=== PATIENT | female | born 1960 | race Caucasian/White ===

== ENCOUNTER 2020-05-07 13:12 | Outpatient (CLI) | payer OTHER, SELFPAY ==
--- NOTE | ~2020-05-07 | XR_ITS ---
EXAMINATION: XR lg joint inject/asp w image DATE: 05/07/2020 14:06 INDICATION: Right hip osteoarthritis with pain TECHNIQUE: A time-out was performed to verify the patient's name, date of , and procedure to b e performed. The procedure including the risks, benefits, and alternatives was discussed with the pat ient. Risks discussed included bleeding and infection. The patient understood the risks and agreed to proceed. The skin overlying the right hip joint was prepped and draped in usual sterile fashion. A nesthetic was administered with 1% lidocaine subcutaneously. A 5 inch 22 G needle was advanced under fluoroscopic guidance into the joint. Injection of 0.6 mL of Omnipaque 240 confirmed intra-articula r position of the needle. Subsequently, injectate consisting of 3 mL of a 2:1 mixture of 0.5% bupiva jeffery: 80 mg/mL Depo-Medrol for a total dose of 80 mg Depo-Medrol was instilled. Washout of contrast was seen confirming intra-articular administration. The needle was removed and the entry site was luis aned and dressed. There were no immediate complications. Fluoroscopy exposure time was 0.2 minutes. The total number of images was 1. FINDINGS: Real-time fluoroscopy demonstrates the needle in the right hip joint. Patient's pain prior to procedure:310. Patient's pain following the procedure: 310. IMPRESSION: 1. Access the right hip joint injection of local anesthetic and steroid with no change in the patient 's presenting pain. Reviewed, dictated and finalized at location A. IMPRESSION: 1. Access the right hip joint injection of local anesthetic and steroid with no change in the patient's presenting pain.
== END 2020-05-07 13:13 | disposition home or self-care (01) ==
LOC: ANHIMG 13:15
PROVIDERS: PCP Family Medicine; Visit Provider Orthopaedic Surgery
DX: M16.11 Unilateral primary osteoarthritis, right hip (principal)
CPT/HCPCS: 20610; 77002; J1040; Q9966

== ENCOUNTER 2020-08-16 10:16 | Outpatient (CLI) | payer OTHER, SELFPAY ==
--- NOTE | ~2020-08-16 | XR_ITS ---
EXAMINATION: XR lg joint inject/asp w image DATE: 08/16/2020 11:14 INDICATION: Right hip arthritis. TECHNIQUE: A time-out was performed to verify the patient's name, date of , and procedure to b e performed. The procedure including the risks, benefits, and alternatives was discussed with the pat ient. Risks discussed included bleeding and infection. The patient understood the risks and agreed to proceed. The skin overlying the right hip joint was prepped and draped in usual sterile fashion. A nesthetic was administered with 1% lidocaine subcutaneously. A 22 G needle was advanced under fluoro scopic guidance into the joint. Injection of 1 mL of Omnipaque 240 confirmed intra-articular positio n of the needle. Subsequently, injectate consisting of 2 mL 0.5% bupivacaine and 1 mL 80 mg/mL Depo- Medrol was instilled. The needle was removed and the entry site was cleaned and dressed. There were no immediate complications. Fluoroscopy exposure time was 0.1 minutes. The total number of images wa s 2. FINDINGS: Real-time fluoroscopy demonstrates the needle in the right hip joint. Patient's pain prior to procedure:6/10. Patient's pain following the procedure: 09/22. IMPRESSION: 1. Fluoroscopy guided right hip joint injection of local anesthetic and steroid with decrease in the patient's presenting pain. Reviewed, dictated and finalized at location A. NMAN
== END 2020-08-16 10:17 | disposition home or self-care (01) ==
LOC: ANHIMG 10:19
PROVIDERS: PCP Family Medicine; Visit Provider Orthopaedic Surgery
DX: M16.11 Unilateral primary osteoarthritis, right hip (principal)
CPT/HCPCS: 20610; 77002; J1040; Q9966

== ENCOUNTER 2020-12-06 14:15 | Outpatient (CLI) | payer OTHER, SELFPAY ==
--- NOTE | ~2020-12-06 | XR_ITS ---
EXAMINATION: XR lg joint inject/asp w image DATE: 12/06/2020 15:06 INDICATION: Right hip osteoarthritis. TECHNIQUE: A time-out was performed to verify the patient's name, date of , and procedure to b e performed. The procedure including the risks, benefits, and alternatives was discussed with the pat ient. Risks discussed included bleeding and infection. The patient understood the risks and agreed to proceed. The skin overlying the right hip joint was prepped and draped in usual sterile fashion. A nesthetic was administered with 1% lidocaine subcutaneously. A 5 inch, 22 G needle was advanced unde r fluoroscopic guidance into the joint. Injection of 1 mL of Omnipaque 240 confirmed intra-articular position of the needle. Subsequently, injectate consisting of 3 mm of a 2:1 mixture of 0.5% Marcain e: 80 mg/mL Depo-Medrol for a total dose of 80 mg Depo-Medrol was instilled. Washout of contrast was seen confirming intra-articular administration. The needle was removed and the entry site was cleaned and dressed. There were no immediate complications. Fluoroscopy exposure time was 0.1 minutes. The total number of images was 1. FINDINGS: Real-time fluoroscopy demonstrates the needle in the right hip joint. Patient's pain prior to procedure:6/10. Patient's pain following the procedure: 2/10. IMPRESSION: 1. Successful right hip joint injection of local anesthetic and steroid with decrease in the patient' s presenting pain. Reviewed, dictated and finalized at location A. IMPRESSION: 1. Successful right hip joint injection of local anesthetic and steroid with de crease in the patient's presenting pain.
== END 2020-12-06 14:16 | disposition home or self-care (01) ==
LOC: ANHIMG 14:23
PROVIDERS: PCP Family Medicine; Visit Provider Nurse Practitioner Family
DX: M16.11 Unilateral primary osteoarthritis, right hip (principal)
CPT/HCPCS: 20610; 77002; J1040; Q9966

== ENCOUNTER 2021-03-07 11:14 | Outpatient (CLI) | payer OTHER, SELFPAY ==
--- NOTE | ~2021-03-07 | XR_ITS ---
EXAMINATION: XR lg joint inject/asp w image DATE: 03/07/2021 12:10 INDICATION: Right hip arthritis. TECHNIQUE: A time-out was performed to verify the patient's name, date of , and procedure to b e performed. The procedure including the risks, benefits, and alternatives was discussed with the pat ient. Risks discussed included bleeding and infection. The patient understood the risks and agreed to proceed. The skin overlying the right hip joint was prepped and draped in usual sterile fashion. A nesthetic was administered with 1% lidocaine subcutaneously. A 22 G needle was advanced under fluoro scopic guidance into the joint. Injection of 1 mL of Omnipaque 240 confirmed intra-articular positio n of the needle. Subsequently, injectate consisting of 2 mL 0.5% bupivacaine and 1 mL 80 mg/mL Depo- Medrol was instilled. The needle was removed and the entry site was cleaned and dressed. There were no immediate complications. Fluoroscopy exposure time was 0.0 minutes. The total number of images wa s 2. FINDINGS: Real-time fluoroscopy demonstrates the needle in the right hip joint. Patient's pain prior to procedure:1/10. Patient's pain following the procedure: 0/10. IMPRESSION: 1. Fluoroscopy guided right hip joint injection of local anesthetic and steroid with decrease in the patient's presenting pain. Reviewed, dictated and finalized at location A.
== END 2021-03-07 11:15 | disposition home or self-care (01) ==
PROVIDERS: PCP Family Medicine; Visit Provider Nurse Practitioner Family
DX: M16.11 Unilateral primary osteoarthritis, right hip (principal)
CPT/HCPCS: 20610; 77002; J1040; Q9966

== ENCOUNTER 2021-07-20 12:52 | Outpatient (CLI) | payer OTHER, SELFPAY ==
--- NOTE | ~2021-07-20 | XR_ITS ---
EXAMINATION: XR lg joint inject/asp w image DATE: 07/20/2021 13:53 INDICATION: Right hip arthritis and chronic pain. TECHNIQUE: A time-out was performed to verify the patient's name, date of , and procedure to b e performed. The procedure including the risks, benefits, and alternatives was discussed with the pat ient. Risks discussed included bleeding and infection. The patient understood the risks and agreed to proceed. The skin overlying the right hip joint was prepped and draped in usual sterile fashion. A nesthetic was administered with 1% lidocaine subcutaneously. A 22 G needle was advanced under fluoro scopic guidance into the joint. Injection of 1 mL of Omnipaque 240 confirmed intra-articular positio n of the needle. Subsequently, injectate consisting of 2 mL 0.5% bupivacaine and 2 mL 40 mg/mL Depo- Medrol was instilled. The needle was removed and the entry site was cleaned and dressed. There were no immediate complications. Fluoroscopy exposure time was 0.0 minutes. The total number of images wa s 2. FINDINGS: Real-time fluoroscopy demonstrates the needle in the right hip joint. Patient's pain prior to procedure:07/25. Patient's pain following the procedure: 07/25. IMPRESSION: 1. Fluoroscopy guided right hip joint injection of local anesthetic and steroid . Reviewed, dictated and finalized at location A. 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
== END 2021-07-20 12:53 | disposition home or self-care (01) ==
LOC: ANHIMG 12:57
PROVIDERS: PCP Family Medicine; Visit Provider Nurse Practitioner Family
DX: M16.11 Unilateral primary osteoarthritis, right hip (principal)
CPT/HCPCS: 20610; 77002; J1030; Q9966

== ENCOUNTER 2021-11-16 12:59 | Outpatient (CLI) | payer OTHER, SELFPAY ==
--- NOTE | ~2021-11-16 | XR_ITS ---
EXAMINATION: XR lg joint inject/asp w image DATE: 11/16/2021 14:09 INDICATION: Right hip arthritis TECHNIQUE: A time-out was performed to verify the patient's name, date of , and procedure to b e performed. The procedure including the risks, benefits, and alternatives was discussed with the pat ient. Risks discussed included bleeding and infection. The patient understood the risks and agreed to proceed. The skin overlying the right hip joint was prepped and draped in usual sterile fashion. A nesthetic was administered with 1% lidocaine subcutaneously. A 22 G needle was advanced under fluoro scopic guidance into the joint. Injection of 1 mL of Omnipaque 240 confirmed intra-articular positio n of the needle. Subsequently, injectate consisting of 4 mL of a 1:1 mixture of 0.5% Marcaine:40 mg/ mL Depo-Medrol for a total dosage of 80 mg Depo-Medrol was instilled. Washout of contrast was seen co nfirming intra-articular administration. The needle was removed and the entry site was cleaned and dr essed. There were no immediate complications. Fluoroscopy exposure time was 0.2 minutes. The total n umber of images was 2. FINDINGS: Real-time fluoroscopy demonstrates the needle in the right hip joint. Patient's pain prior to procedure:2/10. Patient's pain following the procedure: 0/10. IMPRESSION: 1. Successful right hip joint injection of local anesthetic and steroid with decrease in the patient' s presenting pain. Reviewed, dictated and finalized at location A. IMPRESSION: 1. Successful right hip joint injection of local anesthetic and steroid with de crease in the patient's presenting pain.
== END 2021-11-16 13:00 | disposition home or self-care (01) ==
PROVIDERS: PCP Family Medicine; Visit Provider Orthopaedic Surgery
DX: M16.11 Unilateral primary osteoarthritis, right hip (principal)
CPT/HCPCS: 20610; 77002; J1040; Q9966

== ENCOUNTER 2022-03-28 13:13 | Outpatient (CLI) | payer OTHER, SELFPAY ==
--- NOTE | ~2022-03-28 | XR_ITS ---
EXAMINATION: XR lg joint inject/asp w image DATE: 03/28/2022 14:08 INDICATION: Right hip osteoarthritis TECHNIQUE: A time-out was performed to verify the patient's name, date of , and procedure to b e performed. The procedure including the risks, benefits, and alternatives was discussed with the pat ient. Risks discussed included bleeding and infection. The patient understood the risks and agreed to proceed. The skin overlying the right hip joint was prepped and draped in usual sterile fashion. A nesthetic was administered with 1% lidocaine subcutaneously. A 5 inch, 22 G needle was advanced unde r fluoroscopic guidance into the joint. Injection of 1 mL of Omnipaque 240 confirmed intra-articular position of the needle. Subsequently, injectate consisting of 3 mL of a 2:1 mixture of 0.5% Marcain e: 80 mg/mL Depo-Medrol for a total dose of 80 mg Depo-Medrol was instilled. Washout of contrast was seen confirming intra-articular administration. The needle was removed and the entry site was cleaned and dressed. There were no immediate complications. Fluoroscopy exposure time was 0.1 minutes. The total number of images was 2. FINDINGS: Real-time fluoroscopy demonstrates the needle in the right hip joint. Patient's pain prior to procedure:3/10. Patient's pain following the procedure: 2/10. IMPRESSION: 1. Successful right hip joint injection of local anesthetic and steroid with decrease in the patient' s presenting pain. Reviewed, dictated and finalized at location A. IMPRESSION: 1. Successful right hip joint injection of local anesthetic and steroid with de crease in the patient's presenting pain.
== END 2022-03-28 13:14 | disposition home or self-care (01) ==
LOC: ANHIMG 13:20
PROVIDERS: PCP Family Medicine; Visit Provider Orthopaedic Surgery
DX: M16.11 Unilateral primary osteoarthritis, right hip (principal)
CPT/HCPCS: 20610; 77002; J1040; Q9966

== ENCOUNTER 2022-08-23 12:54 | Outpatient (CLI) | payer OTHER, SELFPAY ==
--- NOTE | ~2022-08-23 | XR_ITS ---
EXAMINATION: XR lg joint inject/asp w image DATE: 08/23/2022 13:52 INDICATION: Right hip arthritis. TECHNIQUE: A time-out was performed to verify the patient's name, date of , and procedure to b e performed. The procedure including the risks, benefits, and alternatives was discussed with the pat ient. Risks discussed included bleeding and infection. The patient understood the risks and agreed to proceed. The skin overlying the right hip joint was prepped and draped in usual sterile fashion. A nesthetic was administered with 1% lidocaine subcutaneously. A 22 G needle was advanced under fluoro scopic guidance into the joint. Subsequently, injectate consisting of 2 mL 0.5% bupivacaine and 1 mL 80 mg/mL Depo-Medrol was instilled. The needle was removed and the entry site was cleaned and dress ed. There were no immediate complications. Fluoroscopy exposure time was 0.1 minutes. The total numb er of images was 1. FINDINGS: Real-time fluoroscopy demonstrates the needle in the right hip joint. Patient's pain prior to procedure:7/10. Patient's pain following the procedure: 0/10. IMPRESSION: 1. Fluoroscopy guided right hip joint injection of local anesthetic and steroid with decrease in the patient's presenting pain. Reviewed, dictated and finalized at location A. [employer]OR [employer]DR[employer]ISING
== END 2022-08-23 12:55 | disposition home or self-care (01) ==
PROVIDERS: PCP Family Medicine; Visit Provider Orthopaedic Surgery
DX: M16.11 Unilateral primary osteoarthritis, right hip (principal)
CPT/HCPCS: 20610; 77002; J1040

== ENCOUNTER 2022-11-27 10:29 | Outpatient (CLI) | payer OTHER, SELFPAY ==
--- NOTE | ~2022-11-27 | XR_ITS ---
. EXAMINATION: XR lg joint inject/asp w image DATE: 11/27/2022 11:33 INDICATION: Right hip arthritis. TECHNIQUE: A time-out was performed to verify the patient's name, date of , and procedure to b e performed. The procedure including the risks, benefits, and alternatives was discussed with the pat ient. Risks discussed included bleeding and infection. The patient understood the risks and agreed to proceed. The skin overlying the right hip joint was prepped and draped in usual sterile fashion. A nesthetic was administered with 1% lidocaine subcutaneously. A 22 G needle was advanced under fluoro scopic guidance into the joint. Subsequently, injectate consisting of 2 mL 0.5% bupivacaine and 1 mL 80 mg/mL Depo-Medrol was instilled. The needle was removed and the entry site was cleaned and dress ed. There were no immediate complications. Fluoroscopy exposure time was 0.1 minutes. The total numb er of images was 1. FINDINGS: Real-time fluoroscopy demonstrates the needle in the right hip joint. Patient's pain prior to procedure:5/10. Patient's pain following the procedure: 0/10. IMPRESSION: 1. Fluoroscopy guided right hip joint injection of local anesthetic and steroid with decrease in the patient's presenting pain. Reviewed, dictated and finalized at location A.
== END 2022-11-27 10:30 | disposition home or self-care (01) ==
PROVIDERS: PCP Family Medicine; Visit Provider Orthopaedic Surgery
DX: M16.11 Unilateral primary osteoarthritis, right hip (principal)
CPT/HCPCS: 20610; 77002; J1040

== ENCOUNTER 2023-04-06 10:06 | Outpatient (CLI) | payer OTHER, SELFPAY ==
[2023-04-06 10:54] LABS: Basophils Percent Auto 0.6 % (0.2-1.2); Eosinophils Absolute Auto 0.2 K/mm3 (0-0.3); Eosinophils Percent Auto 2.4 % (0-4.4); Hematocrit 35.7 % (37.0-47.0); Hemoglobin 11.8 g/dL (12.0-15.0); Immature Granulocyte Absolute 0.02 K/mm3 (0.00-0.031); Immature Granulocyte Percent A 0.3 % (0-0.5); Lymphocytes Absolute Auto 2.51 K/mm3 (0.9-3.2); Lymphocytes Percent Auto 37.9 % (18.3-44.2); Mean Corpuscular HGB Conc 33.1 g/dl (32-36); Mean Corpuscular Hemoglobin 31.2 pg (26-34); Mean Corpuscular Volume 94.4 fl (80-100); Mean Platelet Volume 12.2 fl (7.4-10.4); Monocytes Absolute Auto 0.6 K/mm3 (0.1-0.6); Monocytes Percent Auto 8.6 % (2.6-8.5); Neutrophils Absolute Auto 3.3 K/mm3 (1.3-6.7); Neutrophils Percent Auto 50.2 % (45.5-73.1); Platelet Count Result 184 k/mm3 (150-375); Red Blood Count 3.78 M/mm3 (4.2-5.4); Red Cell Distribution Width 12.6 % (11.5-14.5); White Blood Count 6.6 K/mm3 (4.5-10.0)
[2023-04-06 11:04] LABS: Anion Gap 4 mmol/L (8-16); Blood Urea Nitrogen 13 mg/dL (7-17); Calcium 8.9 mg/dL (8.4-10.2); Carbon Dioxide 31 mmol/L (22-30); Chloride 105 mmol/L (98-107); Estimated Glomerular Filt Rate > 60; Glucose 98 mg/dL (65-110); Potassium 3.4 mmol/L (3.4-5.0); Sodium 140 mmol/L (137-145)
[2023-04-06 11:19] LABS: Appearance Urine Cloudy (Clear); Bacteria Urine 4+ /hpf; Bilirubin Urine 1+ (Negative); Blood Urine Negative (Negative); Calcium Oxalate Crystals Urine Present /hpf; Color Urine Dark Yellow (Yellow); Glucose Urine UA Negative (Negative); Ketones Urine Trace mg/dL (Negative); Leukocyte Esterase Ur 2+ LEU/UL (Negative); Need Manual Microscopic Reviewed; Nitrate Urine Positive (Negative); Protein Urine Negative (Negative); Specific Grav Ur 1.019 (1.001-1.035); Squamous Epithelial Cell Urine Moderate /hpf (Few); Urobilinogen Urine 0.2 mg/dL (<2.0); WBC Urine 21-50 /hpf; pH Urine 5.5 (5.0-9.0)
[2023-04-06 11:25] LABS: Add Urine Microscopic? YES
--- NOTE | 2023-04-06 11:30 | ECG_ITS ---
Measurements Intervals [place] Rate: 59 P: 43 WV: 134 QRS: -2 QRSD: 106 T: -2 QT: 478 QTc: 477 Interpretive Statements SINUS BRADYCARDIA INCOMPLETE RIGHT BUNDLE BRANCH BLOCK BORDERLINE ST-T WAVE ABNORMALITY- ANT/INF LEADS BASELINE ARTIFACT- I, II, III BORDERLINE ECG NO PREVIOUS ECG AVAILABLE FOR COMPARISON Electronically Signed On 04-06-2023 11:38:12 CDT by Kleber Betts D.O.
== END 2023-04-06 10:07 | disposition home or self-care (01) ==
LOC: ANHLAB 10:07
PROVIDERS: PCP Family Medicine; Visit Provider Orthopaedic Surgery
DX: M16.10 Unilateral primary osteoarthritis, unspecified hip (principal); I10 Essential (primary) hypertension; Z01.818 Encounter for other preprocedural examination; I45.10 Unspecified right bundle-branch block
CPT/HCPCS: 36415; 80048; 81001; 85025; 87077; 87086; 87088; 87186; 93005

== ENCOUNTER 2023-05-01 11:18 | Outpatient (CLI) | payer OTHER, SELFPAY ==
[2023-05-01 13:29] LABS: Urine Cotinine NEGATIVE
[2023-05-01 13:30] LABS: Prothrombin Time 13.6 Seconds (11.1-14.7)
[2023-05-01 13:31] LABS: Partial Thromboplastin Time 30.2 SECONDS (22.3-36.8)
== END 2023-05-01 11:19 | disposition home or self-care (01) ==
LOC: ANHSURGERY 12:02
PROVIDERS: PCP Physician Assistant; Visit Provider Orthopaedic Surgery
DX: Z01.818 Encounter for other preprocedural examination (principal); M16.11 Unilateral primary osteoarthritis, right hip
CPT/HCPCS: 80307; 85610; 85730; 87081

== ENCOUNTER 2023-05-23 02:08 | Day surgery (SDC) | payer OTHER, SELFPAY ==
[2023-05-01 12:06] VITALS: BMI 34.8
--- NOTE | 2023-05-01 12:32 | PC.NURSE ---
Report to the Outpatient Waiting Room, entrance under the green pavilion located off [facility], at time 0600 on date ___05/15/23____. Planned Procedure Time: _0730 . Time changes happen often and if your time is changed the preop area will call you the afternoon before. - You and your visitor will be asked to self-screen and do not enter if you have any COVID symptoms. - A mask is optional within the hospital at this time. Patients may have clear liquids (water, carbonated beverages, clear teas, apple juice) until 3 hours prior to surgery with a maximum of 20 ounces. - No food from midnight until time of surgery - Infants may have breast milk until 4 hours before surgery, infant formula 6 hours prior to surgery. - Children will be allowed to drink immediately following surgery. If applicable, please bring a bottle or sippy cup to assist with drinking. Juice, water, soda, and popsicles are readily available. For infants on formula, please bring formula the day of surgery. Pacifiers are allowed. Take the following medications with a SIP of water the morning of surgery: __DULOXETINE,LEVOTHYROXINE,METOPROLOL DO NOT STOP ANY OF YOUR OTHER PRESCRIPTION MEDICATIONS PRIOR TO SURGERY ?EXCEPT THE FOLLOWING Medications to discontinue per physician _PT STATES HOLD ASPIRIN 5 DAYS PRE OP,LAST DOSE 05/10/23 AND HOLD MELOXICAM 7 DAYS PRE OP.LAST DOSE 05/07/[address] GAXIOLA. ALL VITAMINS AND SUPPLEMENTS 3 DAYS PRE OP.LAST DOSE 05/11/23 Please no make-up, nail malagasy, hairspray, perfume, deodorant, or body powder the day of surgery. No jewelry (including any body piercings) or valuables the day of surgery, leave them at home. Please take a shower or bath the night before, or the morning of, surgery with an antibacterial soap. Wear comfortable, loose fitting clothing. Children are encouraged to wear pajamas. - Jewelry must be removed prior to entering the operating room. Rings and piercings that are not removed may be cut off. - The hospital will not accept responsibility for valuables. - Please leave all valuables, including medications, at home the day of surgery. If you are going home after surgery, a licensed truck driver must drive you home. - NO public transportation without another adult if you receive anesthesia. - We recommend that an adult stay with you for 24 hours following discharge. - We also recommend that you do not drive, make important decision, drink alcoholic beverages, or take any drugs that were not prescribed by your health care provider for at least 24 hours after your discharge time. For Pediatric surgeries, we recommend two adults accompany the child home. Follow any additional instructions given to you from your surgeon. If you or anyone in your household have experienced Covid symptoms in the past week, please notify your surgeon or the nurse liaison at the phone number below for possible testing. VERBAL AND WRITTEN instructions given to _PATIENT and asked if any additional questions and then verbalized understanding. Patient advised to call surgeon office or pre surgery nurse liaison [phone] if any additional questions.
[2023-05-01 12:58] VITALS: BP 141/79; PULSE 59; RESP 18; TEMP 36.4; O2SAT 97
--- NOTE | 2023-05-17 09:16 | PC.NURSE ---
Report to the Outpatient Waiting Room, entrance under the green pavilion located off [facility], at time ____0600___ on date __05/23/23 . Planned Procedure Time: ___729 . Time changes happen often and if your time is changed the preop area will call you the afternoon before. - You and your visitor will be asked to self-screen and do not enter if you have any COVID symptoms. - A mask is optional within the hospital at this time. Patients may have clear liquids (water, carbonated beverages, clear teas, apple juice) until 3 hours prior to surgery (0430 AM) with a maximum of 20 ounces. - No food from midnight until time of surgery - Infants may have breast milk until 4 hours before surgery, formula 6 hours prior to surgery. - Children will be allowed to drink immediately following surgery. If applicable, please bring a bottle or sippy cup to assist with drinking. Juice, water, soda, and popsicles are readily available. For infants on formula, please bring formula the day of surgery. Pacifiers are allowed. Take the following medications with a SIP of water the morning of surgery: _DULOXETINE,LEVOTHYROXINE, METOPROLOL_ DO NOT STOP ANY OF YOUR OTHER PRESCRIPTION MEDICATIONS PRIOR TO SURGERY ?EXCEPT THE FOLLOWING Medications to discontinue per physician _(PER PT) MELOXICAM 7 DAYS PRIOR TO SURGERY, Date to take last dose 05/15/23, ASPIRIN 5 DAYS PRIOR TO SURGERY, Date to take last dose 05/17/23_ Medications to discontinue per ANESTHESIA _VITAMINS/SUPPLEMENTS 3 DAYS PRIOR TO SURGERY, Date to take last dose 05/19/23_ Please no make-up, nail cuban, hairspray, perfume, deodorant, or body powder the day of surgery. No jewelry (including any body piercings) or valuables the day of surgery, leave them at home. Please take a shower or bath the night before, or the morning of, surgery with an antibacterial soap. Wear comfortable, loose fitting clothing. Children are encouraged to wear pajamas. - Jewelry must be removed prior to entering the operating room. Rings and piercings that are not removed may be cut off. - The hospital will not accept responsibility for valuables. - Please leave all valuables, including medications, at home the day of surgery. If you are going home after surgery, a licensed team cdl driver must drive you home. - NO public transportation without another adult if you receive anesthesia. - We recommend that an adult stay with you for 24 hours following discharge. - We also recommend that you do not drive, make important decision, drink alcoholic beverages, or take any drugs that were not prescribed by your health care provider for at least 24 hours after your discharge time. For Pediatric surgeries, we recommend two adults accompany the child home. Follow any additional instructions given to you from your surgeon. If you or anyone in your household have experienced Covid symptoms in the past week, please notify your surgeon or the nurse liaison at the phone number below for possible testing. Telephone instructions given to ___PT and asked if any additional questions and then verbalized understanding. Patient advised to call surgeon office or pre surgery nurse liaison [phone] if any additional questions.
[2023-05-23] VITALS (15 sets, daily range): BP systolic 93–133; BP diastolic 46–83; PULSE 66–84; RESP 12–18; TEMP 35.6–36.9; O2SAT 93–100
--- NOTE | ~2023-05-23 | XR_ITS ---
EXAMINATION: XR hip RT min 2V DATE: 05/23/2023 12:00 INDICATION: Postoperative evaluation following right total hip arthroplasty TECHNIQUE: Anteroposterior and crosstable lateral views of the right hip were obtained. COMPARISON: Radiograph dated 04/06/2023 FINDINGS: Interval placement of a noncemented right total hip arthroplasty which appears well seated in near an atomic alignment. Expected subcutaneous gas in the postoperative bed. No fractures identified. IMPRESSION: 1. Right total hip arthroplasty, negative for postoperative purposes. Reviewed, dictated and finalized at location A. [facility] [employer]
[2023-05-23] MEDS: LACTATED RINGERS 1,000 ML 30 ML IV CONT ×2 (06:43→11:29)
[2023-05-23] MEDS: ACETAMINOPHEN 500 MG TABLET 1000 MG PO (06:43)
--- NOTE | 2023-05-23 07:02 | WPDANESEPPF ---
Anes - Initial Pre Proc Eval Procedure: Operation Date: 05/23/23 08:15 Proposed Procedures p Right Total Hip Arthroplasty - Sean Leal MD Date/Time: 05/23/23 07:02 Surgeon: Sean Leal MD Pre Op Diagnosis: right hip djd Patient Data Age: 62 Gender: F Height: 1.63 m Weight: 92.1 kg Last Vital Signs Temp 36.4 C 05/01/23 12:58 Pulse 59 L 05/01/23 12:58 Resp 18 05/01/23 12:58 BP 141/79 H 05/01/23 12:58 Pulse Ox 97 05/01/23 12:58 O2 Del Method Room Air 05/01/23 12:58 Allergies Allergy/AdvReac Type Severity Reaction Status Date / Time ciprofloxacin [From Cipro] AdvReac Nausea AND Verified 05/23/23 06:24 DIARRHEA morphine AdvReac Hallucinati Verified 05/23/23 06:24 ng Home Medications Medication Instructions Recorded Confirmed Type aspirin 81 mg tablet,delayed 81 mg PO DAILY 09/12/19 05/17/23 History release duloxetine 60 mg capsule,delayed 60 mg PO DAILY 09/12/19 05/17/23 History release (Cymbalta) fenofibrate 54 mg tablet 54 mg PO DAILY 09/12/19 05/17/23 History metoprolol tartrate 50 mg tablet 50 mg PO BID 09/12/19 05/17/23 History multivitamin 1 tablet PO DAILY 09/12/19 05/17/23 History pantoprazole 40 mg tablet,delayed 40 mg PO BID 09/12/19 05/17/23 History release (Protonix) rosuvastatin 10 mg tablet 10 mg PO DAILY 09/12/19 05/17/23 History meloxicam 15 mg tablet See Rx Instructions .Route 01/29/23 05/17/23 Rx .COMPLEX #30 tabs calcium carbonate 600 mg-vitamin 1 tablet PO DAILY 05/01/23 05/17/23 History D3 10 mcg (400 unit) tablet (Calcium 600 + D(3)) diphenhydramine HCl 25 mg tablet 50 mg PO PRN PRN Insomnia 05/01/23 05/17/23 History (Allergy (diphenhydramine)) doxycycline hyclate 50 mg capsule 50 mg PO DAILY ROSACEA 05/01/23 05/17/23 History furosemide 20 mg tablet 20 mg PO DAILY 05/01/23 05/17/23 History hydrocodone 7.5 mg-acetaminophen 1 tablet PO PRN PRN Pain 05/01/23 05/17/23 History 325 mg tablet levothyroxine 100 mcg tablet 100 mcg PO DAILY 05/01/23 05/17/23 History chlorhexidine gluconate 4 % 1 applic topical DAILY #237 mL 05/07/23 05/17/23 Rx topical liquid (Hibiclens) Patient hx anesthesia problems: post op nausea/vomiting Family hx anesthesia problems: post op nausea/vomiting Results Review: All pre-operative results and documents have been reviewed as part of the pre-operative evaluation. [facility] Past Medical History Medical History Anxiety Arthritis Arthritis of shoulder region, left, degenerative Arthritis, hip BMI greater than 40 Coracoid impingement of right shoulder Depression Dyspnea Fibromyalgia GERD (gastroesophageal reflux disease) HLD (hyperlipidemia) HTN (hypertension) Hypothyroidism IBS (irritable bowel syndrome) Impingement syndrome of right shoulder Left shoulder pain Left shoulder strain Nausea and vomiting in adult Osteoporosis Shoulder arthritis Sleep apnea SOB (shortness of breath) on exertion Stomach pain Weight gain Surgical History Surgical History H/O heart artery stent H/O joint replacement History of hand surgery Family History Family History Other Arthritis Heart disease Hypertension Social History Social History Smoking status: Never smoker Additional smoking assessment comments: DENIES ANY FORM OF TOBACCO USE Alcohol intake: current Substance use: unknown Living arrangements: alone Occupation/Education: occupation 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
[2023-05-23] MEDS: TRANEXAMIC ACID 1,000MG/ISO100 1,000 MG/100 ML BAG 200 MG IVPB (07:15)
[2023-05-23] MEDS: SCOPOLAMINE 1.5 MG PATCH TRANSDERM (07:15)
--- NOTE | 2023-05-23 08:12 | WPDHPUPDATE1 ---
History and Physical Update Update Date/Time: 05/23/23 08:12 History and Physical has been reviewed, including an updated exam of the patient. There are NO changes in the patient's condition. Risks, benefits, and alternatives have been discussed and questions answered. Patient agrees to proceed with procedure.
[2023-05-23] MEDS: ceFAZolin 2 GM/D5W 50 ML 2 GM/50 ML BAG IVPB ×2 (08:27→16:43)
[2023-05-23] MEDS: TRANEXAMIC ACID 1,000 MG/10 ML AMPUL 1000 MG IV PUSH (10:43)
--- NOTE | 2023-05-23 11:32 | W.PM.PROC2 ---
Procedure Note - Detailed Date of Procedure 05/23/23 Pre-op Diagnosis right hip djd Post-op Diagnosis Same Procedure Performed R ISABELLA Surgeon Sean Leal MD Anesthesia General Description of Procedure THE PATIENT WAS TAKEN TO THE OPERATING ROOM IN STABLE CONDITION AND WAS PLACED IN THE LATERAL DECUBITUS AND THE RIGHT LOWER EXTREMITY WAS PREPPED AND DRAPED IN THE STERILE FASHION. INCISION WAS MADE IN THE POSTERIOR LATERAL SIDE OF THE HIP, DOWN TO THE FASCIA LAYER. THE FASCIA WAS INCISED. THE HIP WAS EXPOSED. THE SHORT EXTERNAL ROTATORS WERE EXPOSED. THE SCIATIC NERVE WAS IDENTIFIED. INCISION WAS MADE THROUGH THE SHORT EXTERNAL ROTATORS AND THE CAPSULE OF THE HIP JOINT. THE HIP WAS DISLOCATED. AN OSTEOTOMY WAS MADE TO THE FEMORAL NECK ABOUT 1 CM PROXIMAL TO THE LESSER TROCHANTER. THE ACETABULUM WAS EXPOSED. THERE WAS SEVERE DJD SEEN. BEGINNING WITH A 44 REAMER THE ACETABULUM WAS REAMED TO 49 MM. A 49 MM TRIAL WAS PLACED IN 35 DEG OF ABDUCTION AND ANTEVERSION WAS IN ALIGNMENT WITH THE TRANS ACETABULAR LIGAMENT. THE FIT WAS EXCELLENT. THE TRIAL WAS REMOVED. A 50 MM BIOMET G7 COMPONENT WAS THEN TAPPED IN TO PLACE IN 35 DEG OF ABDUCTION AND ANTEVERSION IN ALIGNMENT WITH THE TRANSVERSE ACETABULAR LIGAMENT. THE FIT WAS EXCELLENT. THE ACETABULAR LINER WAS PLACED AND CHECKED FOR STABILITY. NEXT THE FEMUR WAS PREPARED WITH INITIAL CANAL FINDER THEN SEQUENTIAL BROACHING WITH A TAPERLOC HIP SYSTEM, UNTIL A 7 BROACH FIT WELL IN 15 OF ANTEVERSION. A 0 STANDARD OFFSET NECK WITH 36 MM HEAD TRIAL WAS PLACED. THE SHUCK TEST WAS EXCELLENT AND THE STABILITY IN FLEXION AND ROTATION WAS EXCELLENT. LEG LENGTHS WERE GROSSLY EQUAL. TRIALS WERE REMOVED. A BIOMET TAPERLOC 7 STEM WAS PLACED WITH A STANDARD OFFSET NECK. THE FIT WAS EXCELLENT IN 15 DEG OF ANTEVERSION. A 0 CERAMIC 36 MM FEMORAL HEAD WAS PLACED. THE HIP WAS TRIALED AND THE STABILITY WAS EXCELLENT WERE THE LEG LENGTHS AND THE SHUCK TEST. THE WOUND WAS IRRIGATED WITH STERILE BETADINE AND WATER FOR 3 MIN. THEN WASHED AGAIN. THE SCIATIC NERVE WAS IDENTIFIED AGAIN. THE CAPSULE AND THE EXTERNAL ROTATORS WERE APPROXIMATED WITH NUMBER 1 VICRYL. THE FASCIA WITH No 2 QUIL AND THE SUB CUTANEOUS LAYER WITH 2-0 ABSORBABLE SUTURE AND A RUNNING 3-0 SUBCUTICULAR STITCH FOR THE SKIN. DERMABOND WAS PLACED AND STERILE DRESSING WAS APPLIED. PATIENT WAS PLACED BACK ON TO THE SUPINE POSITION AND WAS EXTUBATED Estimated Blood Loss -150.0 Complications No immediate complications Condition Stable Disposition PACU
[2023-05-23] MEDS: fentaNYL CITRATE INJ (*CRX) 100 MCG/2 ML VIAL 25 MCG IV PUSH ×5 (11:46→12:09)
--- NOTE | 2023-05-23 13:35 | PC.NURSE ---
This patient, Ewelina Clifton, was admitted to [facility] Surg Room 330-02. Patient/family oriented to hospital policies and general routines including ID bracelet, bed and alarms, visiting hours, pain management, procedures, bathroom and other care routines, personal items, smoking policy, room service/diet, and visiting hours. Information on how to activate the Rapid Response Team has been discussed. Patient/Family are encouraged to report perceived risks to care and to ask questions if they do not understand what they are told or what they should do.
[2023-05-23] MEDS: LACTATED RINGERS 1,000 ML 100 ML IV CONT (14:21)
--- NOTE | 2023-05-23 15:16 | SUR.PHASEI ---
1230: Patient meets PACU discharge criteria, unit bed unavailable at this time. Patient placed in extended recovery status.
[2023-05-23] MEDS: HYDROcodone/acetaminophen (*CRX) 7.5-325 MG TABLET 1 TAB PO (15:38)
[2023-05-23] MEDS: SENNA/DOCUSATE SODIUM TABLET 2 TAB PO (16:43)
[2023-05-23] MEDS: PANTOPRAZOLE 40 MG TABLET PO (16:43)
[2023-05-23] MEDS: KETOROLAC 15 MG/ML VIAL (*BKC) IV PUSH (17:58)
[2023-05-23] MEDS: ASPIRIN 325 MG ENTERIC TABLET PO (20:39)
[2023-05-23] MEDS: HYDROcodone/acetaminophen (*CRX) 7.5-325 MG TABLET 2 TAB PO (20:41)
[2023-05-23] MEDS: METOPROLOL TARTRATE 50 MG TAB PO (20:41)
[2023-05-24] VITALS: BP 135/70; PULSE 74; RESP 16; TEMP 36; O2SAT 97
[2023-05-24] MEDS: KETOROLAC 15 MG/ML VIAL (*BKC) IV PUSH ×3 (00:24→12:00)
[2023-05-24] MEDS: ceFAZolin 2 GM/D5W 50 ML 2 GM/50 ML BAG IVPB ×2 (00:25→08:13)
[2023-05-24 04:00] VITALS: BP 116/68; PULSE 75; RESP 16; TEMP 36.2; O2SAT 98
[2023-05-24 05:52] LABS: Basophils Percent Auto 0.5 % (0.2-1.2); Eosinophils Percent Auto 0.4 % (0-4.4); Hematocrit 28.8 % (37.0-47.0); Hemoglobin 9.3 g/dL (12.0-15.0); Immature Granulocyte Absolute 0.03 K/mm3 (0.00-0.031); Immature Granulocyte Percent A 0.4 % (0-0.5); Lymphocytes Percent Auto 30.3 % (18.3-44.2); Mean Corpuscular HGB Conc 32.3 g/dl (32-36); Mean Platelet Volume 11.8 fl (7.4-10.4); Monocytes Absolute Auto 0.9 K/mm3 (0.1-0.6); Monocytes Percent Auto 10.7 % (2.6-8.5); Neutrophils Absolute Auto 4.8 K/mm3 (1.3-6.7); Neutrophils Percent Auto 57.7 % (45.5-73.1); Platelet Count Result 139 k/mm3 (150-375); Red Cell Distribution Width 12.6 % (11.5-14.5); White Blood Count 8.3 K/mm3 (4.5-10.0)
[2023-05-24] MEDS: HYDROcodone/acetaminophen (*CRX) 7.5-325 MG TABLET 1 TAB PO ×2 (05:53→11:59)
[2023-05-24] MEDS: LEVOTHYROXINE SODIUM 100 MCG TABLET PO (05:53)
[2023-05-24 06:12] LABS: Anion Gap 4 mmol/L (8-16); Blood Urea Nitrogen 21 mg/dL (7-17); Calcium 8.8 mg/dL (8.4-10.2); Carbon Dioxide 29 mmol/L (22-30); Chloride 105 mmol/L (98-107); Estimated CRCL calculation 67 ml/min; Estimated Glomerular Filt Rate > 60; Glucose 107 mg/dL (65-110); Potassium 3.6 mmol/L (3.4-5.0); Sodium 138 mmol/L (137-145)
[2023-05-24 08:00] VITALS: BP 97/57; PULSE 76; RESP 16; TEMP 35.7; O2SAT 96
[2023-05-24 08:15] VITALS: PULSE 88
[2023-05-24] MEDS: DOXYCYCLINE HYCLATE 50 MG CAPSULE PO (08:15)
[2023-05-24] MEDS: DULoxetine HCL 60 MG CAPSULE.DR PO (08:15)
[2023-05-24] MEDS: METOPROLOL TARTRATE 50 MG TAB PO (08:15)
[2023-05-24] MEDS: PANTOPRAZOLE 40 MG TABLET PO (08:15)
[2023-05-24] MEDS: SENNA/DOCUSATE SODIUM TABLET 2 TAB PO (08:15)
[2023-05-24] MEDS: ASPIRIN 325 MG ENTERIC TABLET PO (08:15)
[2023-05-24] MEDS: FUROSEMIDE 20 MG TABLET PO (08:15)
[2023-05-24] MEDS: ROSUVASTATIN 10 MG TABLET PO (08:15)
[2023-05-24] MEDS: polyethylene glycoL 3350 17 GM POWD.PACK PO (08:17)
--- NOTE | 2023-05-24 09:16 | P.PNAN_ITS ---
Anes - Prog Note Post-Op Date/Time: 05/24/23 09:16 Cardiovascular status: other (hypotensive, anemic) Respiratory status: normal Airway patency: baseline Mental status: baseline Post-Op hydration status: normal Vital Signs: Last Vital Signs Temp 35.7 C L 05/24/23 08:00 Pulse 88 05/24/23 08:15 Resp 16 05/24/23 08:00 BP 97/57 L 05/24/23 08:00 Pulse Ox 96 05/24/23 08:00 O2 Del Method Room Air 05/23/23 15:38 O2 Flow Rate 2 05/23/23 13:20 Pain Score (VAS): 09/22 I/O: Intake & Output 05/23/23 05/24/23 05/24/23 23:59 07:59 15:59 Intake Total 1790 300 Output Total 350 Balance 1790 -50 Laboratory Tests 05/24/23 05:36 05/24/23 05:36 05/24/23 05:36 WBC 8.3 RBC 3.00 L Hgb 9.3 L Hct 28.8 L MCV 96.0 MCH 31.0 MCHC 32.3 RDW 12.6 Plt Count 139 L MPV 11.8 H Immature Gran % (Auto) 0.4 Neut % (Auto) 57.7 Lymph % (Auto) 30.3 [place] % (Auto) 10.7 H Eos % (Auto) 0.4 Baso % (Auto) 0.5 Lymph # (Auto) 2.50 [place] # (Auto) 0.9 H Eos # (Auto) 0.0 Baso # (Auto) 0.0 Abs Immat Gran (auto) 0.03 Absolute Neuts (auto) 4.8 Absolute Nucleated RBC 0.0 Nucleated RBC % 0.0 Sodium 138 Potassium 3.6 Chloride 105 Carbon Dioxide 29 Anion Gap 4 L BUN 21 H Creatinine 0.80 Estim Creat Clear Calc 67 Estimated GFR > 60 Glucose 107 Calcium 8.8 Post-procedural complaints: none Patient Feedback: Patient satisfied with anesthetic care.
--- NOTE | 2023-05-24 09:18 | PM.PNORT ---
Progress Note: A&P Assessment and Plan (1) S/P total hip arthroplasty: Qualifiers: Laterality: right Qualified Code(s): Z96.641 - Presence of right artificial hip joint Code(s): Z96.649 - Presence of unspecified artificial hip joint Status: Acute Assessment and Plan: POD #1 : Right ISABELLA Continue PT/OT. WBAT. Walker. HIGH FALL RISK. Continue pain control. Ice Hip. Protect skin. DVT prophylaxis with Aspirin. SCDs. Incentive Spirometry Use reviewed. Monitor Dressing. Change prior to discharge. Bowel Regimen. Dispo: Home with Home Health vs. [facility] pending progress with PT/OT Plan Reviewed postoperative labs, vitals, exam and decision for plan of care with Dr. Leal. Agrees with current plan as indicated above. Subjective Subjective Date/Time Seen: 05/24/23 09:18 Post Op day: 1 Interval history: POD #1: Right ISABELLA Patient doing very well. Pain well controlled. Anxious about discharge plans. Review of Systems Review of Systems: All systems reviewed & are unremarkable except as noted in HPI and below Constitutional: Constitutional: Denies chills, Denies fever(s), Denies headache(s), Denies lethargy and Reports weakness ENT: Denies headache(s) Cardiovascular: Cardiovascular: Denies chest pain, Denies diaphoresis, Denies lightheadedness, Denies palpitations, Denies dyspnea and Denies dyspnea on exertion Respiratory: Respiratory: Denies cough, Denies dyspnea and Denies dyspnea on exertion Gastrointestinal: Gastrointestinal: Denies constipation, Denies diarrhea, Denies nausea and Denies vomiting Genitourinary: Genitourinary: Reports urinary frequency, Denies dysuria and Denies urinary hesitancy Musculoskeletal: Musculoskeletal: Reports joint swelling (Right Hip ) and Reports limited range of motion (Right Hip due to recent surgery ) Neurologic: Denies headache(s) and Reports weakness Endocrine: Endocrine: Denies palpitations Exam Const: General: comfortable and no acute distress Resp: Effort & Inspection: normal respiratory effort Cardio: Rate: regular rate Rhythm: regular rhythm GI: Inspection: non-distended Skin: General skin exam: normal color Other: Incision right hip c/d/i. Surrounding tissue without redness/warmth. Mild swelling consistent with recent surgery. No drainage. Neuro: Cognition (Neuro): normal cognition Speech: normal speech Extrem: Right lower extremity: normal to inspection, normal capillary refill, hip/thigh Details: tenderness Location: of the hip (Thigh soft ) Location: laterally and anteriorly, swelling Location: at the hip, abnormal ROM (limited consistent with recent surgery ) Details: pain with active ROM during and pain with passive ROM during and other (Incision c/d/i. ); no deformity and no unusual warmth, knee Details: normal to inspection; no tenderness and no swelling, lower leg (Negative Morteza's Sign ) Details: normal to inspection and no edema; no tenderness, ankle (+ankle dorsiflexion/plantarflexion) Details: normal to inspection and no edema; no tenderness, no swelling and no ecchymosis and foot Details: normal capillary refill, toes with normal ROM, vascular exam Details: dorsalis pedis pulse present and motor-sensory exam Details: light-touch normal; no tenderness Objective Data Vital Signs Vital Signs: Vital Signs - 24 hr 05/23/23 11:29 05/23/23 11:45 05/23/23 12:00 Temperature 36.1 C L Pulse Rate 74 79 84 Respiratory Rate 14 14 14 Blood Pressure 104/54 L 99/60 L 119/61 Pulse Oximetry 97 100 93 Oxygen Delivery Simple Face Mask Simple Face Mask Room Air Oxygen Flow Rate 10 10 05/23/23 12:15 05/23/23 12:29 05/23/23 12:45 Temperature Pulse Rate 78 84 75 Respiratory Rate 14 14 13 Blood Pressure 112/62 116/66 126/69 Pulse Oximetry 100 100 100 Oxygen Delivery Nasal Cannula Nasal Cannula Nasal Cannula Oxygen Flow Rate 2 2 2 05/23/23 13:00 05/23/23 13:20 05/23/23 13:35 Temperature 35.6 C L Pulse Ra
[2023-05-24 12:00] VITALS: BP 114/60; PULSE 64; RESP 16; TEMP 36.3; O2SAT 97
--- NOTE | 2023-05-24 12:56 | PM.DS ---
DS: Admitting Diagnosis Discharge Date 05/24/2023 Admitting Diagnosis Right Hip DJD DS: Discharge Diagnosis Discharge Diagnosis (1) S/P total hip arthroplasty: Qualifiers: Laterality: right Qualified Code(s): Z96.641 - Presence of right artificial hip joint Code(s): Z96.649 - Presence of unspecified artificial hip joint Status: Acute Assessment and Plan: POD #1 : Right ISABELLA Continue PT/OT. WBAT. Walker. HIGH FALL RISK. Continue pain control. Ice Hip. Protect skin. DVT prophylaxis with Aspirin. SCDs. Incentive Spirometry Use reviewed. Monitor Dressing. Change prior to discharge. Bowel Regimen. Dispo: Home with Home Health vs. [facility] pending progress with PT/OT Plan Reviewed postoperative labs, vitals, exam and decision for plan of care with Dr. Leal. Agrees with current plan as indicated above. DS: Summary Hospital Course Reason for hospitalization: Right ISABELLA Hospital Course: 62 year old female admitted s/p Right ISABELLA for postoperative medical management, pain control and mobilization with PT/OT. Patient progressed well with PT/OT. Pain and vitals remained stable throughout. The patient has been cleared to be discharged home with home health at this time. All discharge care instructions reviewed at depth. New medications reviewed. Follow up planned for 3 weeks in the outpatient orthopedic clinic with Dr. Leal. Dr. Leal agrees with discharge plans. Status at Discharge Functional status at discharge: uses cane/walker Overall status at discharge: patient is progressing back to baseline Time Spent with Patient Time attestation: Total time spent providing and/or coordinating discharge services: Exam Const: General: comfortable and no acute distress Resp: Effort & Inspection: normal respiratory effort Cardio: Rate: regular rate Rhythm: regular rhythm GI: Inspection: non-distended Skin: General skin exam: normal color Other: Incision right hip c/d/i. Surrounding tissue without redness/warmth. Mild swelling consistent with recent surgery. No drainage. Neuro: Cognition (Neuro): normal cognition Speech: normal speech Extrem: Right lower extremity: normal to inspection, normal capillary refill, hip/thigh Details: tenderness Location: of the hip (Thigh soft ) Location: laterally and anteriorly, swelling Location: at the hip, abnormal ROM (limited consistent with recent surgery ) Details: pain with active ROM during and pain with passive ROM during and other (Incision c/d/i. ); no deformity and no unusual warmth, knee Details: normal to inspection; no tenderness and no swelling, lower leg (Negative Morteza's Sign ) Details: normal to inspection and no edema; no tenderness, ankle (+ankle dorsiflexion/plantarflexion) Details: normal to inspection and no edema; no tenderness, no swelling and no ecchymosis and foot Details: normal capillary refill, toes with normal ROM, vascular exam Details: dorsalis pedis pulse present and motor-sensory exam Details: light-touch normal; no tenderness DS: Data Data Completed and Pending Labs on day of discharge: Labs from last 24 hours 05/24/23 05:36 WBC 8.3 RBC 3.00 L Hgb 9.3 L Hct 28.8 L MCV 96.0 MCH 31.0 MCHC 32.3 RDW 12.6 Plt Count 139 L MPV 11.8 H Immature Gran % (Auto) 0.4 Neut % (Auto) 57.7 Lymph % (Auto) 30.3 [place] % (Auto) 10.7 H Eos % (Auto) 0.4 Baso % (Auto) 0.5 Lymph # (Auto) 2.50 [place] # (Auto) 0.9 H Eos # (Auto) 0.0 Baso # (Auto) 0.0 Abs Immat Gran (auto) 0.03 Absolute Neuts (auto) 4.8 Absolute Nucleated RBC 0.0 Nucleated RBC % 0.0 Sodium 138 Potassium 3.6 Chloride 105 Carbon Dioxide 29 Anion Gap 4 L BUN 21 H Creatinine 0.80 Estim Creat Clear Calc 67 Estimated GFR > 60 Glucose 107 Calcium 8.8 Discharge Plan Discharge Patient Disposition: Home Health Service Discharge Instructions: Remove the Scopolamine patch that was placed behind your left ear in 72 hours
== END 2023-05-24 16:10 | disposition home health service (06) ==
LOC: ANHSURGERY 07:16 → ANH3MEDSUR 13:27
PROVIDERS: PCP Physician Assistant; Visit Provider Orthopaedic Surgery
PROC: (CPT 27130; principal; 2023-05-23 08:15)
DX: M16.11 Unilateral primary osteoarthritis, right hip (principal); I10 Essential (primary) hypertension; E78.5 Hyperlipidemia, unspecified; E03.9 Hypothyroidism, unspecified; K21.9 Gastro-esophageal reflux disease without esophagitis; F41.9 Anxiety disorder, unspecified; F32.A Depression, unspecified; M79.7 Fibromyalgia; M81.0 Age-related osteoporosis without current pathological fracture; G47.30 Sleep apnea, unspecified; Z95.5 Presence of coronary angioplasty implant and graft; Z79.82 Long term (current) use of aspirin; E66.9 Obesity, unspecified; Z68.33 Body mass index [BMI] 33.0-33.9, adult
CPT/HCPCS: 27130; 36415; 73502; 80048; 85025; 86850; 86900; 86901; 97110; 97116; 97161; 97165; 97530; 97535; A9270; C1776; J0171; J0690; J1100; J1170; J1885; J2250; J2270; J2405; J2704; J2795; J3010; J7120

== ENCOUNTER 2025-01-08 00:54 | Day surgery (SDC) | payer MEDICARE, OTHER, SELFPAY ==
[2024-12-22 15:24] VITALS: BMI 27.2
--- NOTE | 2025-01-08 07:45 | WPDANESEPPF ---
Anes - Initial Pre Proc Eval Procedure: Operation Date: 01/08/25 10:00 Proposed Procedures p Esophagogastroduodenoscopy & Colonoscopy - Yrn Lock MD Date/Time: 01/08/25 07:45 Surgeon: Yrn Lock MD Pre Op Diagnosis: IBS Patient Data Age: 64 Gender: F Height: 1.63 m Weight: 72 kg Allergies Allergy/AdvReac Type Severity Reaction Status Date / Time ciprofloxacin (From Cipro) AdvReac Nausea AND Verified 01/08/25 08:33 DIARRHEA morphine AdvReac Hallucinati Verified 01/08/25 08:33 ng Home Medications ?Medication ?Instructions ?Recorded ?Confirmed ?Type aspirin 81 mg tablet,delayed 81 mg PO DAILY 09/12/19 12/22/24 History release duloxetine 60 mg capsule,delayed 60 mg PO DAILY 09/12/19 12/22/24 History release (Cymbalta) fenofibrate 54 mg tablet 54 mg PO DAILY 09/12/19 12/22/24 History metoprolol tartrate 50 mg tablet 50 mg PO BID 09/12/19 12/22/24 History multivitamin 1 tablet PO DAILY 09/12/19 12/22/24 History pantoprazole 40 mg tablet,delayed 40 mg PO BID 09/12/19 12/22/24 History release (Protonix) rosuvastatin 10 mg tablet 10 mg PO DAILY 09/12/19 12/22/24 History calcium 600 mg (as 1 tablet PO DAILY 05/01/23 12/22/24 History carbonate)-vitamin D3 10 mcg (400 unit) tablet (Calcium 600 + D(3)) diphenhydramine HCl 25 mg tablet 50 mg PO PRN PRN Insomnia 05/01/23 12/22/24 History (Allergy (diphenhydramine)) furosemide 20 mg tablet 20 mg PO DAILY 05/01/23 12/22/24 History levothyroxine 100 mcg tablet 100 mcg PO DAILY 05/01/23 12/22/24 History anastrozole 1 mg tablet 1 mg PO DAILY 09/18/24 12/22/24 History meloxicam 15 mg tablet 15 mg PO DAILY 90 days #90 tabs 11/14/24 12/22/24 Rx carvedilol 3.125 mg tablet 3.125 mg PO BID 12/22/24 12/22/24 History Patient hx anesthesia problems: none Family hx anesthesia problems: none Results Review: All pre-operative results and documents have been reviewed as part of the pre-operative evaluation. [facility] Past Medical History Medical History (Updated 01/08/25 @ 07:46 by Avel Gurrola DO) RICKY (obstructive sleep apnea) Colon polyps Gastric polyps Gas bloat syndrome Epigastric pain Left shoulder strain Arthritis of shoulder region, left, degenerative Osteoporosis IBS (irritable bowel syndrome) SOB (shortness of breath) on exertion Impingement syndrome of right shoulder Coracoid impingement of right shoulder BMI greater than 40 GERD (gastroesophageal reflux disease) Weight gain Arthritis, hip Left shoulder pain Fibromyalgia Arthritis Anxiety Depression Stomach pain Nausea and vomiting in adult Hypothyroidism HTN (hypertension) HLD (hyperlipidemia) Sleep apnea Dyspnea Shoulder arthritis Surgical History Surgical History (Updated 01/08/25 @ 07:46 by Avel Gurrola DO) Hx of CABG x4, 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 S/P total hip arthroplasty RT ISABELLA 05/23/23 History of hand surgery H/O joint replacement H/O heart artery stent Family History Family History Other Arthritis Heart disease Hypertension Social History Social History Smoking status: Never smoker Additional smoking assessment comments: DENIES ANY FORM OF TOBACCO USE Alcohol intake: current Drinks per week: 1 Substance use: never Lack of Transportation: No Lack of Food: Never True Current Housing: I Have Housing Concerned About Future Housing: Decline to Answer Difficulty Paying Gas/Electric Bills: Decline to Answer Difficulty Paying for Meds: Decline to Answer Currently Unemployed: Decline to Answer Education: Bachelor's Degree Difficulty w/ Childcare or Family Care: Decline to Answer Living arrangements: alone Occupation/Education: occupation 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/education 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 [employer] Gender identity (if verbalized by the patient): Female Spiritual care concerns: No Agree to blood products: Yes Anes - Eval Final PreProcedure Day of Procedure 01/08/25 07:45 Patient weight: overweight Heart: regular rate and rhythm Lungs: clear to auscultation Airway: Mallampati scale class II Neurological: alert and oriented Last oral intake: >/= 8 hours ASA classification: III Emergent: no Anesthetic plan: proceed Anesthesia type and monitoring: general GIVS and standard monitoring Results Review: All pre-operative results and documents have been reviewed as part of the pre-operative evaluation. Informed Consent: The patient's anesthetic plan and its attendant risks and benefits were discussed with the patient/family/POA. Questions were solicited and answers provided to the satisfaction of the patient/family/POA.
[2025-01-08 08:34] VITALS: BP 134/74; PULSE 74; RESP 16; TEMP 36.5; O2SAT 100
[2025-01-08] MEDS: LACTATED RINGERS 1,000 ML 150 ML IV CONT (08:44)
[2025-01-08] MEDS: SIMETHICONE ORAL SUSPENSION 20 MG/0.3 ML 30 ML BOTTLE 1.8 ML PO (08:45)
[2025-01-08] MEDS: ONDANSETRON INJ 4 MG/2 ML VIAL IV PUSH (08:46)
--- NOTE | 2025-01-08 09:18 | PM.IMHP ---
H&P: HPI History of Present Illness Date/Time: 01/08/25 09:18 Chief Complaint: History of gastric bypass-diarrhea -history of colon polyps Narrative: the patient had a Kat-en-Y gastric bypass 2 years ago for morbid obesity having lost over 100 lb. One year ago she was diagnosed with breast cancer and is just finishing chemotherapy. As a consequence of all these, she has been complaining of persistent diarrhea. Her last colonoscopy was 4 years ago did not show any polyps however on previous colonoscopy she did have Polyps. Review of Systems Review of Systems: All systems reviewed & are unremarkable except as noted in HPI and below PMFSH Past Medical History Medical History (Updated 01/08/25 @ 07:46 by Avel Gurrola DO) RICKY (obstructive sleep apnea) Colon polyps Gastric polyps Gas bloat syndrome Epigastric pain Left shoulder strain Arthritis of shoulder region, left, degenerative Osteoporosis IBS (irritable bowel syndrome) SOB (shortness of breath) on exertion Impingement syndrome of right shoulder Coracoid impingement of right shoulder BMI greater than 40 GERD (gastroesophageal reflux disease) Weight gain Arthritis, hip Left shoulder pain Fibromyalgia Arthritis Anxiety Depression Stomach pain Nausea and vomiting in adult Hypothyroidism HTN (hypertension) HLD (hyperlipidemia) Sleep apnea Dyspnea Shoulder arthritis Surgical History Surgical History (Updated 01/08/25 @ 07:46 by Avel Gurrola DO) Hx of CABG x4, 2018 History of Kat-en-Y gastric bypass S/P total hip arthroplasty RT ISABELLA 05/23/23 History of hand surgery H/O joint replacement H/O heart artery stent Family History Family History Other Arthritis Heart disease Hypertension Social History Social History Smoking status: Never smoker Additional smoking assessment comments: DENIES ANY FORM OF TOBACCO USE Alcohol intake: current Drinks per week: 1 Substance use: never Lack of Transportation: No Lack of Food: Never True Current Housing: I Have Housing Concerned About Future Housing: Decline to Answer Difficulty Paying Gas/Electric Bills: Decline to Answer Difficulty Paying for Meds: Decline to Answer Currently Unemployed: Decline to Answer Education: Bachelor's Degree Difficulty w/ Childcare or Family Care: Decline to Answer Living arrangements: alone Occupation/Education: occupation 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/education 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 [employer] Gender identity (if verbalized by the patient): Female Spiritual care concerns: No Agree to blood products: Yes Meds Home Medications and Allergies Home Medications ?Medication ?Instructions ?Recorded ?Confirmed ?Type aspirin 81 mg tablet,delayed 81 mg PO DAILY 09/12/19 01/08/25 History release duloxetine 60 mg capsule,delayed 60 mg PO DAILY 09/12/19 01/08/25 History release (Cymbalta) fenofibrate 54 mg tablet 54 mg PO DAILY 09/12/19 01/08/25 History metoprolol tartrate 50 mg tablet 50 mg PO BID 09/12/19 12/22/24 History multivitamin 1 tablet PO DAILY 09/12/19 01/08/25 History pantoprazole 40 mg tablet,delayed 40 mg PO BID 09/12/19 01/08/25 History release (Protonix) rosuvastatin 10 mg tablet 10 mg PO DAILY 09/12/19 01/08/25 History calcium 600 mg (as 1 tablet PO DAILY 05/01/23 01/08/25 History carbonate)-vitamin D3 10 mcg (400 unit) tablet (Calcium 600 + D(3)) diphenhydramine HCl 25 mg tablet 50 mg PO PRN PRN Insomnia 05/01/23 12/22/24 History (Allergy (diphenhydramine)) furosemide 20 mg tablet 20 mg PO DAILY 05/01/23 01/08/25 History levothyroxine 100 mcg tablet 100 mcg PO DAILY 05/01/23 01/08/25 History anastrozole 1 mg tablet 1 mg PO DAILY 09/18/24 01/08/25 History meloxicam 15 mg tablet 15 mg PO DAILY 90 days #90 tabs 11/14/24 01/08/25 Rx carvedilol 3.125 mg tablet 3.125 mg PO BID 12/22/24 01/08/25 History Allergies Allergy/AdvReac Type Severity Reaction Status Date / Time ciprofloxacin (From Cipro) AdvReac Nausea AND Verified 01/08/25 08:33 DIARRHEA morphine AdvReac Hallucinati Verified 01/08/25 08:33 ng Vital Signs Vital Signs - 24 hr 01/08/25 08:34 Temperature 97.7 F Pulse Rate 74 Respiratory Rate 16 Blood Pressure 134/74 Pulse Oximetry 100 Oxygen Delivery Room Air Exam Const: General: cooperative and healthy appearing Resp: Effort & Inspection: normal respiratory effort and able to speak in complete sentences Auscultation: clear to auscultation bilaterally Cardio: Rate: regular rate Rhythm: regular rhythm GI: Inspection: normal to inspection GI Palp: No No hepatosplenomegaly present Auscultation: normal bowel sounds Rectal Exam: deferred Skin: General skin exam: normal color Psych: Appearance: grossly normal Mental Status: mental status grossly normal Assessment and Plan Assessment and plan (1) GERD (gastroesophageal reflux disease): Code(s): K21.9 - Gastro-esophageal reflux disease without esophagitis Status: Acute Assessment and Plan: The patient is deemed a good candidate for the procedure. Consent signed. Will proceed. (2) Colon polyps: Code(s): K63.5 - Polyp of colon Status: Acute (3) History of Kat-en-Y gastric bypass: Code(s): Z98.84 - Bariatric surgery status Status: Acute
--- NOTE | 2025-01-08 09:30 | SUR.OPER ---
EGD: Colon: Start 931
[2025-01-08 09:53] VITALS: BP 88/48; PULSE 74; RESP 17; O2SAT 100
[2025-01-08 10:03] VITALS: BP 81/43; PULSE 57; RESP 17; O2SAT 100
[2025-01-08 10:13] VITALS: BP 111/49; PULSE 52; RESP 14; O2SAT 100
[2025-01-08 10:21] VITALS: BP 133/73
== END 2025-01-08 10:47 | disposition home or self-care (01) ==
PROVIDERS: PCP Physician Assistant; Referring Provider Nurse Practitioner Family; Visit Provider Internal Medicine Gastroenterology
PROC: 0DJ08ZZ Inspection of Upper Intestinal Tract, Via Natural or Artificial Opening Endoscopic (ICD-10-PCS; CPT 45378; principal; 2025-01-08 10:00)
DX: K21.9 Gastro-esophageal reflux disease without esophagitis (principal); K64.8 Other hemorrhoids; K57.30 Diverticulosis of large intestine without perforation or abscess without bleeding; E03.9 Hypothyroidism, unspecified; I10 Essential (primary) hypertension; E78.5 Hyperlipidemia, unspecified; G47.33 Obstructive sleep apnea (adult) (pediatric); M81.0 Age-related osteoporosis without current pathological fracture; K58.9 Irritable bowel syndrome, unspecified; M79.7 Fibromyalgia; F41.9 Anxiety disorder, unspecified; F32.A Depression, unspecified; G47.30 Sleep apnea, unspecified; M19.012 Primary osteoarthritis, left shoulder; M16.10 Unilateral primary osteoarthritis, unspecified hip; Z79.82 Long term (current) use of aspirin; Z98.890 Other specified postprocedural states; Z95.1 Presence of aortocoronary bypass graft; Z95.5 Presence of coronary angioplasty implant and graft; Z98.84 Bariatric surgery status; Z86.0100 Personal history of colon polyps, unspecified; Z85.3 Personal history of malignant neoplasm of breast; Z92.21 Personal history of antineoplastic chemotherapy; Z87.19 Personal history of other diseases of the digestive system; Z82.49 Family history of ischemic heart disease and other diseases of the circulatory system
CPT/HCPCS: 43235; 45378; J2371; J2405; J2704; J7120